=== PATIENT | male | born 1995 | race Caucasian/White ===

== ENCOUNTER 2023-07-21 18:50 | Emergency (ER) | payer SELFPAY ==
[2023-07-21] MEDS ORDERED: Ibuprofen 800 MG TAB ONE (19:06)
== END 2023-07-21 19:34 | disposition home or self-care (01) ==
LOC: MADERS 18:50
DX: S93.115A Dislocation of interphalangeal joint of left lesser toe(s), initial encounter (principal); W21.05XA Struck by basketball, initial encounter
CPT/HCPCS: 28660